=== PATIENT | female | born 1950 | race African-American/Black ===

== ENCOUNTER 2025-07-16 10:47 | Inpatient (IN) | payer MEDICARE, MEDICAID ==
[~2025-07-16] VITALS: Ht 160 cm; Wt 102.5 kg
[2025-07-16] MEDS: SODIUM CHLORIDE 0.9% 500 ML IV ONE (11:52)
[2025-07-16 12:02] LABS: BASOPHILS % 0.3 % (0.0-2.0); EOSINOPHILS % 1.2 % (0.0-5.0); HEMATOCRIT. 45.0 % (36.0-48.0); HEMOGLOBIN. 14.0 g/dL (12.0-16.0); LYMPHOCYTES % 28.1 % (20.0-50.0); MEAN PLATELET VOLUME 8.5 fl (7.4-10.4); MONOCYTES % 8.4 % (2.0-8.0); NEUTROPHILS % 62.0 % (40.0-76.0); PLATELET 189 x1000/uL (130-400); RED BLOOD CELL COUNT 5.21 mill/uL (4.2-5.4); RED CELL DISTRIBUTION WIDTH 16.3 % (11.6-14.6)
[2025-07-16 12:25] LABS: CREATININE 0.8 mg/dL (0.6-1.0); UREA NITROGEN BLOOD 12 mg/dL (9-23)
[2025-07-16 12:27] LABS: ASPARTATE AMINOTRANSFERASE 26 IU/L (<34); BILIRUBIN DIRECT 0.1 mg/dL (<=3.0); BILIRUBIN TOTAL 0.7 mg/dL (0.1-1.0); PROTEIN TOTAL 6.6 g/dL (6.0-8.3)
[2025-07-16 12:30] LABS: TROPONIN I HIGH SENSITIVITY 159 ng/L (3.0-34)
[2025-07-16 14:07] LABS: INR 1.0
[2025-07-16] MEDS ORDERED: IOHEXOL-350 100 ML BOTTLE ONE (14:11)
[2025-07-16 14:12] LABS: TROPONIN I HIGH SENSITIVITY 174 ng/L (3.0-34)
[2025-07-16] MEDS ORDERED: HEPARIN 25,000 UNITS PREMIX 250 ML IV STA (14:13)
[2025-07-16] MEDS ORDERED: HEPARIN 5000 UNITS/ML VIAL IV ONE (14:15)
[2025-07-16] MEDS: HEPARIN 80 UNITS/KG BOLUS IV SCH (15:07)
[2025-07-16] MEDS: HEPARIN 25,000 UNITS PREMIX 250 ML IV SCH ×2 (15:09→17:00)
[2025-07-16] MEDS ORDERED: CLONIDINE 0.1MG TABLET PO PRN (16:45)
[2025-07-16] MEDS ORDERED: IPRATROPIUM/ALBUTEROL 0.5-3(2.5)MG/3ML NEB HHN PRN (16:45)
[2025-07-16] MEDS ORDERED: ACETAMINOPHEN 325MG TABLET PO PRN (16:45)
[2025-07-16] MEDS ORDERED: DOCUSATE SODIUM 100MG CAPSULE PO PRN (16:45)
[2025-07-16] MEDS ORDERED: HEPARIN BOLUS PRN aPTT 37-44 IV ×2 (17:00→21:00)
[2025-07-16] MEDS: METOPROLOL TARTRATE 25MG TABLET PO SCH (17:39)
[2025-07-16] MEDS: ACETAMINOPHEN 325MG TABLET PO PRN (17:39)
[2025-07-16 18:00] VITALS: BP 131/71; PULSE 125; RESP 23; TEMP 37; O2SAT 96
[2025-07-16 18:02] LABS: BG BASE EXCESS 0.3 mmol/L (-2.0-3.0); BG CARBOXYHEMOGLOBIN 0.5 % (0.5-1.5); BG DEOXYHEMOGLOBIN 6.7 % (0.0-5.0); BG FRACTION INSPIRED OXYGEN 21; BG HCO3 ACT 22.8 mmol/L (21.0-28.0); BG METHEMOGLOBIN 0.3 % (0.5-1.5); BG OXYGEN SATURATION 93.2 % (94.0-98.0); BG OXYHEMOGLOBIN 92.5 % (94.0-98.0); BG PCO2 31.0 mmHg (32.0-45.0); BG PH 7.484 (7.350-7.450); BG PO2 60.6 mmHg (83.0-108.0); BG SAMPLE SITE RIGHT BRACHIAL; BG TOTAL HEMOGLOBIN 14.2 g/dL (12.0-16.0); BG VENT MODE ROOM AIR
[2025-07-16 18:12] VITALS: BP 113/98; PULSE 121; RESP 20; TEMP 37.0852
[2025-07-16] MEDS ORDERED: METF-1149 PO (18:45)
[2025-07-16] MEDS ORDERED: AMLO10TA80 PO (18:45)
[2025-07-16] MEDS ORDERED: MELO-106 PO (18:45)
[2025-07-16] MEDS ORDERED: MAGNESIUM 2 G PREMIX 50 ML IV NR (18:57)
[2025-07-16 20:00] VITALS: BP 129/92; PULSE 102; RESP 31; TEMP 36.5; O2SAT 96
[2025-07-16] MEDS ORDERED: HEPARIN BOLUS PRN aPTT <36 IV ×2 (21:00)
[2025-07-16 22:00] VITALS: PULSE 104; RESP 37; O2SAT 94
[2025-07-16] MEDS: ATORVASTATIN CALCIUM 40MG TABLET PO SCH (22:41)
[2025-07-16] MEDS: ONDANSETRON HCL 4MG/2ML INJ IV PRN (22:48)
[2025-07-16] MEDS: LOPERAMIDE HCL 2MG CAPSULE PO PRN (22:56)
[2025-07-17] VITALS (16 sets, daily range): BP systolic 104–131; BP diastolic 63–105; PULSE 82–105; RESP 16–29; TEMP 36.3–37.1; O2SAT 91–100
[2025-07-17] MEDS: ZOLPIDEM TARTRATE 5MG TABLET PO PRN (00:52)
[2025-07-17 02:15] LABS: CREATINE KINASE MB FRACTION 1.8 ng/mL (0.5-3.6)
[2025-07-17 02:25] LABS: TROPONIN I HIGH SENSITIVITY 156 ng/L (3.0-34)
[2025-07-17] MEDS: IPRATROPIUM/ALBUTEROL 0.5-3(2.5)MG/3ML NEB HHN SCH (03:34)
[2025-07-17 06:46] LABS: INR 1.1
[2025-07-17 07:05] LABS: BASOPHILS % 0.5 % (0.0-2.0); EOSINOPHILS % 1.3 % (0.0-5.0); HEMATOCRIT. 38.1 % (36.0-48.0); HEMOGLOBIN. 12.3 g/dL (12.0-16.0); LYMPHOCYTES % 45.9 % (20.0-50.0); MEAN PLATELET VOLUME 9.1 fl (7.4-10.4); MONOCYTES % 8.8 % (2.0-8.0); NEUTROPHILS % 43.5 % (40.0-76.0); PLATELET 166 x1000/uL (130-400); RED BLOOD CELL COUNT 4.50 mill/uL (4.2-5.4); RED CELL DISTRIBUTION WIDTH 15.8 % (11.6-14.6)
[2025-07-17 07:29] LABS: PROTEIN TOTAL 6.5 g/dL (6.0-8.3)
[2025-07-17 07:31] LABS: CREATININE 1.0 mg/dL (0.6-1.0)
[2025-07-17 07:32] LABS: TRIGLYCERIDE 170 mg/dL (0-150); UREA NITROGEN BLOOD 13 mg/dL (9-23)
[2025-07-17 07:33] LABS: ASPARTATE AMINOTRANSFERASE 16 IU/L (<34); LDL CHOLESTEROL 123 mg/dL (5-100)
[2025-07-17 07:34] LABS: BILIRUBIN DIRECT 0.1 mg/dL (<=3.0); BILIRUBIN TOTAL 0.5 mg/dL (0.1-1.0); PHOSPHORUS 3.6 mg/dL (2.5-4.9)
[2025-07-17] MEDS: PANTOPRAZOLE SODIUM 40 MG/VIAL IV SCH (09:31)
[2025-07-17 11:58] LABS: TROPONIN I HIGH SENSITIVITY 92 ng/L (3.0-34)
[2025-07-17] MEDS: HEPARIN BOLUS PRN aPTT 37-44 IV (12:09)
[2025-07-17] MEDS ORDERED: IODIXANOL 320 MG/ML 150ML BOTTLE IV ONE (14:09)
[2025-07-17] MEDS ORDERED: EPINEPHRINE 0.1MG/ML (1:10,000) 10ML SYR ONE (14:09)
[2025-07-17] MEDS ORDERED: LIDOCAINE HCL 1% 20ML VIAL ONE (14:10)
[2025-07-17] MEDS ORDERED: FENTANYL CITRATE/PF 50MCG/ML 2ML VIAL ONE (14:10)
[2025-07-17] MEDS ORDERED: HEPARIN 1000 UNITS/ML 10ML ONE (14:10)
[2025-07-17] MEDS ORDERED: ATROPINE SULFATE 1MG/10ML SYR ONE (14:10)
[2025-07-17] MEDS ORDERED: MIDAZOLAM HCL 2 MG/2 ML VIAL ONE (14:10)
[2025-07-17] MEDS ORDERED: ATROPINE SULFATE 1MG/10ML SYR IV PRN (15:45)
[2025-07-17] MEDS: SODIUM CHLORIDE 0.45% 1,000 ML IV ONE (16:30)
[2025-07-17] MEDS: ENOXAPARIN 100MG/ML SYR SUBCUT SCH (21:29)
[2025-07-17] MEDS: MAGNESIUM/ALUMINUM HYDROXIDE/SIMETHICONE 30ML UDC PO PRN (21:51)
[2025-07-18] VITALS (17 sets, daily range): BP systolic 95–138; BP diastolic 61–98; PULSE 80–98; RESP 15–27; TEMP 36.6–36.8; O2SAT 94–100
[2025-07-18 06:34] LABS: CREATININE 0.9 mg/dL (0.6-1.0); UREA NITROGEN BLOOD 10 mg/dL (9-23)
[2025-07-18 06:37] LABS: BASOPHILS % 0.5 % (0.0-2.0); EOSINOPHILS % 1.6 % (0.0-5.0); HEMATOCRIT. 31.8 % (36.0-48.0); HEMOGLOBIN. 10.1 g/dL (12.0-16.0); LYMPHOCYTES % 36.8 % (20.0-50.0); MEAN PLATELET VOLUME 9.4 fl (7.4-10.4); MONOCYTES % 9.7 % (2.0-8.0); NEUTROPHILS % 51.4 % (40.0-76.0); PLATELET 163 x1000/uL (130-400); RED BLOOD CELL COUNT 3.74 mill/uL (4.2-5.4); RED CELL DISTRIBUTION WIDTH 15.5 % (11.6-14.6)
[2025-07-18] MEDS ORDERED: APIX5TAB MT (10:05)
[2025-07-18] MEDS ORDERED: APIXABAN 5 MG TABLET PO SCH (21:00)
== END 2025-07-18 17:32 | disposition home or self-care (01) | DRG 163 ==
LOC: ER 10:47 → 5EST 14:24 → ENRESERV 15:06
PROVIDERS: ADMIT Internal Medicine; ATTEND Internal Medicine
PROC: 02CR3ZZ Extirpation of Matter from Left Pulmonary Artery, Percutaneous Approach (ICD-10-PCS; principal; 2025-07-17)
PROC: 4A023N6 Measurement of Cardiac Sampling and Pressure, Right Heart, Percutaneous Approach (ICD-10-PCS; 2025-07-17)
PROC: B31TYZZ Fluoroscopy of Left Pulmonary Artery using Other Contrast (ICD-10-PCS; 2025-07-17)
PROC: B31SYZZ Fluoroscopy of Right Pulmonary Artery using Other Contrast (ICD-10-PCS; 2025-07-17)
PROC: B519YZZ Fluoroscopy of Inferior Vena Cava using Other Contrast (ICD-10-PCS; 2025-07-17)
DX: I26.02 Saddle embolus of pulmonary artery with acute cor pulmonale (principal); I21.A1 Myocardial infarction type 2; J96.01 Acute respiratory failure with hypoxia; Z79.01 Long term (current) use of anticoagulants; I10 Essential (primary) hypertension; E66.9 Obesity, unspecified; Z68.41 Body mass index [BMI] 40.0-44.9, adult; R00.0 Tachycardia, unspecified; M19.90 Unspecified osteoarthritis, unspecified site; E83.42 Hypomagnesemia; Z96.653 Presence of artificial knee joint, bilateral; Z96.643 Presence of artificial hip joint, bilateral; Z90.710 Acquired absence of both cervix and uterus; Z79.84 Long term (current) use of oral hypoglycemic drugs
CPT/HCPCS: 36415; 36600; 37184; 37185; 71045; 71275; 75743; 75820; 75825; 80048; 80061; 80076; 82375; 82550; 82553; 82805; 83036; 83735; 83880; 84100; 84443; 84484; 85025; 85347; 85379; 93005; 93306; 93970; 94070; 94640; 94664; 96360; 96361; 98960; 99291; A4606; A4615; C1769; C1887; C1893; J0461; J1644; J1650; J2003; J2250; J2405; J2470; J3010; J3490; J7030; Q9967; C1757; C1894